=== PATIENT | female | born 1980 | race American Indian/Alaskan Native ===

== ENCOUNTER 2018-04-18 19:41 | Emergency (ER) | payer SELFPAY ==
--- NOTE | 2018-04-18 20:24 | Emergency Department Report ---
Blank Doc - Documentation Documentation: 38 y.o. female presents with headache, nausea and vomiting. Reports 2 episodes of vomiting today. History of migraines. cc headache, nausea, and vomiting MSE complete Fast Track for evaluation
== END 2018-04-18 21:30 | disposition left against medical advice (07) ==
LOC: ED 19:41